=== PATIENT | male | born 1980 | race Caucasian/White ===

== ENCOUNTER → 2018-04-07 | Outpatient (CLI) | payer OTHER ==
[~2018-04-07] MED LIST: 0.9 % SODIUM CHLORIDE 10 ML DISP.SYRIN. ID ONE; GADOBUTROL 7.5 MMOL/7.5 ML VIAL INT ART ONE; IOHEXOL 300 MG/ML 50 ML VIAL. INT ART ONE; LIDOCAINE 1% Multi-Dose 20 ML VIAL. ID ONE
--- NOTE | 2018-04-07 15:54 | KCIC ---
Examination: MR arthrogram left shoulder HISTORY: History of left shoulder pain COMPARISON: None available TECHNIQUE: Multiplanar, multisequence MR imaging of the left shoulder performed after arthrogram injection. FINDINGS: The long head of the biceps tendon is within the bicipital groove. The attachment of the long head of the biceps tendon to the superior labral anchor grossly appears intact. The attachment of the subscapularis tendon appears intact. The attachment of the supraspinatus, infraspinatus tendons grossly appears intact. No evidence of full-thickness rotator cuff tear. There is mild increased T2 signal identified in the superior labrum at the attachment of the long head of the biceps tendon extending posteriorly likely SLAP tear. No evidence of paralabral cyst. Mild degenerative change is identified in the common clavicular joint. The acromion is type II. The muscle bulk grossly appears unremarkable. The coracoclavicular ligaments appears mildly thickened probably mild scarring changes. IMPRESSION: 1. Increased T2 signal identified in the superior labrum at the site of attachment of the long head of the biceps tendon to the superior labral anchor and extending posteriorly, likely a SLAP tear. 2. No evidence of rotator cuff tear. 3. Mild scarring changes of the coracoclavicular ligaments. Electronically signed by: Clovis Garay MD (04/07/2018 3:50 PM) [facility]
--- NOTE | 2018-04-07 16:09 | KCIC ---
Examination: Left Shoulder Arthrogram: Indications: Left shoulder pain. Procedure: Risks, benefits and complications including bleeding, infection, blood vessel damage or joint infection were discussed with the patient. Questions were answered and consent form signed. The patient was placed supine on the fluoroscopy table with the shoulder slightly externally rotated. Bony landmarks were used to plan for fluoroscopic injection. The patient was carefully prepped and draped in a sterile fashion. Using fluoroscopic guidance, local anesthetic and a 22 gauge needle the joint space was entered. Intra-articular location was confirmed as approximately 12cc of a mixture of 5 cc of Omnipaque 300, 5 cc lidocaine, 10 cc of saline and 0.1 cc of gadolinium contrast was injected. The procedure was well tolerated and the patient was sent to MRI. The patient was sent home in good condition with instructions to contact referring physician if there develops signs or symptoms of complications, such as pain, bleeding, fever or chills. Impression: Status post fluoroscopic guided arthrogram in preparation for MRI with contrast. Total fluoroscopic time 24 seconds. Total fluoroscopic images 1. Electronically signed by: Clovis Garay MD (04/07/2018 4:05 PM) [id number]
== END | disposition home or self-care (01) ==
LOC: KCIC 13:37
PROVIDERS: ATTEND Family Medicine
DX: M19.012 Primary osteoarthritis, left shoulder (principal); Z98.890 Other specified postprocedural states
CPT/HCPCS: 73040; 73222; A9585; Q9967